=== PATIENT | male | born 1990 | race Caucasian/White ===

== ENCOUNTER → 2021-09-04 16:58 | Outpatient (CLI) | payer SELFPAY ==
[2021-09-04 18:44] LABS: AST(SGOT) 32 U/L (15-37); Alanine Aminotransfer ALT/SGPT 31 U/L (16-61); Albumin, Serum 4.1 g/dL (3.2-5.0); Alkaline Phosphatase 75 U/L (45-117); Cholesterol 234 mg/dL (200); Globulin 4.3 g/dL (2.2-4.2); High Density Lipoprotein 46 mg/dL; Protein, Total 8.4 g/dL (6.4-8.2); Triglycerides 187 mg/dL; Very Low Density Lipoprotein 37 mg/dL (5-40)
== END ==
PROVIDERS: Visit Provider Internal Medicine Cardiovascular Disease
DX: E78.00 Pure hypercholesterolemia, unspecified (principal)
CPT/HCPCS: 36415; 80061; 80076

== ENCOUNTER → 2021-09-25 06:00 | Outpatient (CLI) | payer SELFPAY ==
--- NOTE | 2021-09-25 06:09 | ECHOCS_ITS ---
Reason For Study: FAMILY HISTORY Procedure This was a 2D Doppler, Color Flow transthoracic echocardiogram. The study was technically difficult. Contrast injection was performed. Exam performed in department. Left Ventricle Normal LV size. Left ventricular systolic function is normal. The estimated ejection fraction is 60 %. Transmitral doppler flow suggestive of impaired relaxation of left ventricle. No regional wall motion abnormalities noted. Right Ventricle Normal RV size. Normal systolic function. Atria Normal left atrium. Normal right atrium. No doppler evidence for ASD. Mitral Valve There is no mitral annular calcification. Normal mitral valve. Trivial mitral valve insufficiency. Tricuspid Valve Normal tricuspid valve. Trivial tricuspid valve insufficiency. Right ventricular systolic pressure estimated to be 23 mmHg. Aortic Valve Trisinus/trileaflet aortic valve. Normal aortic valve. Pulmonic Valve The pulmonic valve is not well visualized. Great Vessels Normal sized aortic root. Pericardium/Pleural No pericardial effusion. MMode/2D Measurements & Calculations LVIDd: 4.8 cm IVSd: 1.0 cm Ao root diam: 3.6 cm LVIDs: 3.6 cm LVPWd: 0.95 cm RVDd: 3.9 cm FS: 25.5 % LAV(MOD-bp): 46.6 ml LVAd ap4: 37.7 cm2 LVAd ap2: 38.3 cm2 LAV(MOD-bp) Indexed: 19.8 ml/m2 LVLd ap4: 8.5 cm LVLd ap2: 8.8 cm LAV(MOD-sp2): 45.0 ml EDV(MOD-sp4): 135.9 ml EDV(MOD-sp2): 141.0 ml LAV(MOD-sp4): 47.5 ml EDV(sp4-el): 142.3 ml EDV(sp2-el): 140.6 ml LVAs ap4: 23.6 cm2 LVAs ap2: 23.7 cm2 LVLs ap4: 7.1 cm LVLs ap2: 7.3 cm ESV(MOD-sp4): 65.5 ml ESV(MOD-sp2): 66.8 ml ESV(sp4-el): 66.5 ml ESV(sp2-el): 65.6 ml EF(MOD-sp4): 51.8 % EF(MOD-sp2): 52.6 % EF(sp4-el): 53.3 % SV(MOD-sp4): 70.4 ml SV(MOD-sp2): 74.2 ml SV(sp4-el): 75.8 ml LA dimension(2D): 3.6 cm LA A4 area: 17.6 cm2 RA A4 area: 15.0 cm2 Doppler Measurements & Calculations MV E max francisco javier: 68.4 cm/sec Lat Peak E' Francisco Javier: 7.2 cm/sec Med Peak E' Francisco Javier: 5.9 cm/sec MV A max francisco javier: 102.9 cm/sec E/E' lat: 9.5 E/E' med: 11.6 MV E/A: 0.66 Ao V2 max: 141.9 cm/sec AI max francisco javier: 370.3 cm/sec LV V1 max: 95.0 cm/sec Ao max P.1 mmHg AI max P.9 mmHg LV V1 max P.6 mmHg AI dec slope: 154.8 cm/sec2 AI P1/2t: 700.8 msec TR max francisco javier: 225.0 cm/sec TR max P.3 mmHg ECHO/Echo Complete W/ Contrast Interpretation Summary The study was technically difficult. Contrast injection was performed. Left ventricular systolic function is normal. The estimated ejection fraction is 60 %. Trivial mitral valve insufficiency. Trivial tricuspid valve insufficiency. Right ventricular systolic pressure estimated to be 23 mmHg. Transmitral doppler flow suggestive of impaired relaxation of left ventricle Ordering Physician: Erik Mahan Referring Physician: Erik Mahan Performed By: Lucero Crews, RDCS, RVT
--- NOTE | 2021-09-25 10:00 | STRESSREP ---
Stress Test Report Date: 09-25-2021 Procedure: Exercise tolerance test/imaging study Indications: Family history of premature CAD/sudden cardiac Consent: Per the patient Procedure: The patient exercised on a River protocol for 10 minutes completing Stage I and 1 minute of Stage II achieving a peak heart rate of 169 bpm (93% predicted maximal heart rate) with a peak blood pressure 180/90 mmHg and a peak MET capacity of 13 METs. The baseline ECG demonstrated sinus rhythm. The peak exercise ECG demonstrated somatic/motion artifact with no obvious ECG changes. There was an isolated PVC during recovery. The functional capacity was considered good. There was no complaint of chest discomfort during exercise or recovery. The examination was discontinued secondary to dyspnea. Impression: 1. Technically adequate (percent predicted maximal heart rate greater than 85%) exercise tolerance test 2. Peak exercise ECG with somatic/motion artifact with no obvious ECG changes 3. There was an isolated PVC during recovery 4. Nuclear images pending Myocardial perfusion imaging study: Technique: The patient was injected with 14.8 mCi of technetium 99m Cardiolite and subsequently rest SPECT Cardiolite nuclear imaging was obtained in the horizontal long, vertical long, and short axis views. The patient exercised on a River protocol for 10 minutes completing Stage I and 1 minute of Stage II achieving a peak heart rate of 169 bpm (93% predicted maximal heart rate) with a peak blood pressure 180/90 mmHg and a peak MET capacity of 13 METs. The patient was injected with 44.9 mCi of technetium 99m Cardiolite and subsequently stress SPECT Cardiolite nuclear imaging was obtained in the horizontal long, vertical long, and short axis views. A gated Cardiolite study at peak stress was obtained. Interpretation: Rest and stress SPECT Cardiolite nuclear imaging status post realignment, normalization, and attenuation correction, demonstrates the appearance of a small area of subtle diminished tracer uptake near the apical segments without significant change between rest and stress. There is end systolic thickening and brightening. The gated Cardiolite study demonstrates myocardial thickening and inward wall motion. The reported LVEF is 61%. Impression: 1. Rest and stress SPECT Cardiolite nuclear imaging demonstrate myocardial perfusion changes compatible with an element of physiologic apical thinning with no myocardial perfusion changes considered diagnostic for associated stress-induced myocardial ischemia. 2. The gated Cardiolite study reports an LVEF of 61%. This note was generated with [employer] software. It may contain incorrect words, spelling, and punctuation that were not noted in checking the note before signing.
== END ==
PROVIDERS: Referring Provider Internal Medicine Cardiovascular Disease; Visit Provider Internal Medicine Cardiovascular Disease
DX: Z13.6 Encounter for screening for cardiovascular disorders (principal); Z82.49 Family history of ischemic heart disease and other diseases of the circulatory system; Z82.41 Family history of sudden cardiac death
CPT/HCPCS: 78452; 93017; 93306; A9500; Q9957; A4216; C8929

== ENCOUNTER → 2022-10-02 | Outpatient (CLI) | payer SELFPAY | END | disposition home or self-care (01) | PROVIDERS: Referring Provider Nurse Practitioner Family; Visit Provider Nurse Practitioner Family | DX: G47.10 Hypersomnia, unspecified (principal) | CPT/HCPCS: 95806 ==